=== PATIENT | male | born 1940 | race Caucasian/White ===

== ENCOUNTER → 2023-10-23 13:16 | Outpatient (REF) | payer OTHER, SELFPAY | LOC: RAD 13:16 | PROVIDERS: ATTENDING PHYSICIAN Internal Medicine | DX: I77.811 Abdominal aortic ectasia (principal) | CPT/HCPCS: 76770 ==

== ENCOUNTER 2024-05-03 11:21 | Emergency (ER) | payer OTHER, SELFPAY ==
--- NOTE | 2024-05-03 11:36 | ED.GENMED ---
ED Provider Triage
<Pavel Jackson PA-C - Last Filed: 05/03/24 11:41>
-
Patient seen by provider in Triage?: Seen in Triage
Attestation: A medical screening examination has been initiated by a qualified medical provider. Based on the assessment performed at this time, it has been determined that an emergent medical condition may exist and the patient has been informed
that further medical evaluation and possible additional diagnostic testing may be needed.
HPI:
GENERAL: Alert , in no apparent distress
EYE: No visual abnormalities.
NECK: Trachea midline
ENT: No visible abnormalities.
LUNGS: No acute respiratory distress
NEUROLOGICAL: Alert and oriented
SKIN: Skin intact. No visible changes.
MUSCULOSKELETAL: Moving extremities normally
PSYCH: Normal and appropriate interaction.
This is a medical evaluation conducted in person to initiate diagnostic evaluation and provide initial therapeutics. Please see further documentation by the treating clinician.
History of Present Illness
<Pavel Jackson PA-C - Last Filed: 05/03/24 11:41>
General
Chief Complaint: Musculo-Skeletal Complaint
Time Seen by Provider: 05/03/24 13:46
<Driss Bowre MD - Last Filed: 05/03/24 15:51>
General
Source: patient
Exam Limitations: none
History of Present Illness
History of Present Illness:
Patient with weeks of right mid scapular pain. With shooting pain down the back of the right arm. Patient points to the back of the arm only. No chest pain or shortness of breath. No pleuritic pain. No fever or chills. Seen by pain management
the other day with no improvement. However he is able to sleep well at night without issues.
Past History
<Pavel Jackson PA-C - Last Filed: 05/03/24 11:41>
Past History
ED Past Medical History: Hypercholesterolemia; Negative Asthma, HTN or NIDDM
ED Past Surgical History: None
Social History
Tobacco: Former smoker
Alcohol: Occasional
Personal:
Living: with family
Phy Exam
<Driss Bower MD - Last Filed: 05/03/24 15:51>
Physical Exam
Physical Exam:
GENERAL: Alert and oriented in no apparent distress
EYE: Orbits normal.
NECK: Supple
CARDIAC: Regular rate and rhythm without any obvious murmurs. Patient points to the right mid to upper parathoracic area as the location of the pain however no point tenderness no swelling no warmth no erythema. Good distal pulses of the right arm.
LUNGS: Clear breath sounds,normal
ABDOMEN: Soft, without focal tenderness or distention
NEUROLOGICAL: Alert and oriented , grossly non-focal
SKIN: Warm and dry, no rash or lesion, no discoloration, skin intact.
MUSCULOSKELETAL: No edema,no deformity.Good color
PSYCH: Normal and appropriate interaction.
Course
<Pavel Jackson PA-C - Last Filed: 05/03/24 11:41>
Orders/Labs/Results
Orders:
Orders
05/03/24 11:41
CR Cervical Spine 4 Or 5 Vw Urgent
Comment:
Reason For Exam: pain
05/03/24 14:14
Ketorolac [Toradol] 30 mg IM NOW STA
CXR2 [CR Chest - 2 Views ] Urgent
Comment:
Reason For Exam: Nontraumatic right upper back pain
Vital Signs
Initial and Last Documented VS:
Initial Vital Signs
Pulse Resp BP Pulse Ox
63 16 173/98 98
05/03/24 11:37 05/03/24 11:37 05/03/24 11:37 05/03/24 11:37
Last Documented Vital Signs
Pulse Resp BP Pulse Ox
63 16 173/98 98
05/03/24 11:37 05/03/24 11:37 05/03/24 11:37 05/03/24 11:37
<Driss Bower MD - Last Filed: 05/03/24 15:51>
Orders/Labs/Results
Orders:
Orders
05/03/24 11:41
CR Cervical Spine 4 Or 5 Vw Urgent
Comment:
Reason For Exam: pain
05/03/24 14:14
Ketorolac [Toradol] 30 mg IM NOW STA
CXR2 [CR Chest - 2 Views ] Urgent
Comment:
Reason For Exam: Nontraumatic right upper back pain
Vital Signs
Initial and Last Documented VS:
Initial Vital Signs
Pulse Resp BP Pulse Ox
63 16 173/98 98
05/03/24 11:37 05/03/24 11:37 05/03/24 11:37 05/03/24 11:37
Last Documented Vital Signs
Pulse Resp BP Pulse Ox
63 16 173/98 98
05/03/24 11:37 05/03/24 11:37 05/03/24 11:37 05/03/24 11:37
<Driss Bower MD - Last Filed: 05/03/24 15:51>
MDM/Problems Addressed
Differential Diagnosis Includes:
Patient has had continual symptoms for weeks. Continuous, nonexertional, nonpleuritic. he is in 0 distress. The pain shoots down the back of the right arm only. I do not feel this is cardiac. This is all consistent with a radiculopathy like
pain. 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 Will increase his steroid dose pain management and orthopedic follow-up.
<Driss Bower MD - Last Filed: 05/03/24 15:51>
*Radiology
Radiology exam reviewed: preliminary read by ED provider (Degenerative changes.) and radiology read reviewed (Degenerative changes. Atelectasis left base)
*Pulse Oximetry
Patient hypoxic: no
*Critical Care Note
Total Time (30-74mins, 75-104mins- exclusive of procedures): Not Applicable
Data Reviewed
Review of Other/Old Records Reveals: Radiology Studies
ED Attending Note
<Pavel Jackson PA-C - Last Filed: 05/03/24 11:41>
-
Portions of this chart may have been created with voice recognition software.� Occasional wrong word or��sound alike� substitutions may have occurred due to the inherent limitations of voice recognition software.
Discharge Plan
Departure
Patient Disposition: Home (Routine Discharge)
Date of Disposition: 05/03/24
Time of Disposition: 15:47
Patient with high blood pressure during this ER visit?: Yes
Discharge Problem:
Upper back pain/radiculopathy
Instructions: Radiculopathy of the neck and back (including sciatica), Upper Back Pain ED, BLOOD PRESSURE
Prescriptions:
New
prednisone 10 mg tablet
10 mg PO DAILY Qty: 20 0RF
Rx Instructions:
4 tablets day 1. Then 1 less tablet every other day until gone
hydrocodone-acetaminophen 5-300 mg tablet
1 tab PO Q6H PRN (Reason: Pain) Qty: 14 0RF
Referrals:
Jeet Cody MD [Family Provider] - Follow up in 2-3 days
Dat Perez MD [Active] - Next open appointment
Activity Restrictions/Additional Instructions:
Take the higher dose of prednisone
You can try the Vicodin instead of the Ultram. Either of these medicines will make you groggy however.
These prescriptions were sent to your pharmacy
You may want to start with Advil Motrin or Aleve.
Recommend follow-up with orthopedics.
Return with increasing pain chest pain shortness of breath weakness in the arm or any other concerning symptoms
Interventions
Interventions:
*Risk Screen - Suicide Last Done: 05/03/24 11:41
*General Assessment Last Done: 05/03/24 11:37
*Neglect/Abuse Screening Last Done: 05/03/24 11:41
Discharge Date and Time
Print Language: SALVADOREAN
[2024-05-03 11:37] VITALS: BP 173/98
[2024-05-03] MEDS: TORADOL 30 MG IM (15:31)
[2024-05-03] MEDS: DELTASONE 40 MG PO (15:55)
== END 2024-05-03 15:55 | disposition home or self-care (01) ==
LOC: EMR 11:21
PROVIDERS: EMERGENCY PHYSICIAN Emergency Medicine; FAMILY PHYSICIAN Internal Medicine
DX: M54.14 Radiculopathy, thoracic region (principal); M54.6 Pain in thoracic spine; M79.601 Pain in right arm; R03.0 Elevated blood-pressure reading, without diagnosis of hypertension; E78.00 Pure hypercholesterolemia, unspecified
CPT/HCPCS: 99284; 96372; 71046; 72050

== ENCOUNTER → 2024-07-30 08:36 | Outpatient (REF) | payer OTHER, SELFPAY | LOC: RAD 08:36 | PROVIDERS: ATTENDING PHYSICIAN Internal Medicine | DX: I71.40 Abdominal aortic aneurysm, without rupture, unspecified (principal) | CPT/HCPCS: 76770 ==

== ENCOUNTER → 2025-02-02 16:19 | Outpatient (REF) | payer OTHER, SELFPAY ==
[2025-02-02 17:19] LABS: Hematocrit 45.2 % (39.0-52.0); Hemoglobin 15.4 g/dL (13.0-18.0); Mean Corp Hgb Conc. 34.1 g/dL (33.0-37.0); Mean Corpuscular Volume 99.8 fL (80.0-94.0); Nucleated Red Blood Cells % 0 % (-); Platelet Count 203 10^3/uL (130-400); Red Cell Dist. Width 13.0 % (11.5-14.5)
[2025-02-02 17:42] LABS: ALT (SGPT) 27 U/L (0-50); AST (SGOT) 30 U/L (17-59); Albumin 5.0 g/dl (3.5-5.0); Alkaline Phosphatase 58 U/L (38-126); Blood Urea Nitrogen 17 mg/dl (9-20); Calcium 9.9 mg/dl (8.4-10.2); Carbon Dioxide 31 mmol/L (22-30); Chloride 102 mmol/L (98-107); Glucose 119 mg/dl (70-99); Potassium 4.9 mmol/L (3.5-5.1); Sodium 139 mmol/L (135-145); Total Protein 8.1 g/dl (6.3-8.2); eGFR > 60.00
== END ==
LOC: REG 16:19
PROVIDERS: ATTENDING PHYSICIAN Surgery Plastic and Reconstructive Surgery; FAMILY PHYSICIAN Internal Medicine
DX: Z01.812 Encounter for preprocedural laboratory examination (principal); Z01.810 Encounter for preprocedural cardiovascular examination
CPT/HCPCS: 36415; 80053; 85025; 93005

== ENCOUNTER 2025-02-10 06:21 | Day surgery (SDC) | payer OTHER, SELFPAY ==
[2025-02-10] VITALS (8 sets, daily range): BP systolic 132–179; BP diastolic 72–88; BMI 29.0
[2025-02-10] MEDS: TYLENOL 1000 MG PO (09:41)
[2025-02-10] MEDS: NORMOSOL-R/PLASMALYTE-A 1000 IV (09:56)
--- NOTE | 2025-02-10 16:43 | W.IMMPOSTOP ---
Surgical Immed Post Op Note
-
Primary Surgeon: ALIVIA Hameed MD
Assisting Surgeon:
Pre-op Diagnosis: Melanoma in situ, Mohs defect of the nose
Post-op Diagnosis: Same
Procedure Performed: Pedicled nasolabial fold flap reconstruction of left nasal tip, complex intranasal wound closure
Anesthesia Type: General
Specimen / Cultures: None
Estimated Blood Loss: 10 cc
Complications: None
Operative Findings: As expected
--- NOTE | 2025-02-10 16:43 | OR.RPT ---
Operative Report
Operative Report
Date of surgery: 02/10/2025
Surgeon: ALIVIA Hameed MD
Preoperative diagnosis:
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
2. Nasal soft tissue defect after Mohs surgery
Postoperative diagnosis: Same
Procedure:
1. Pedicled nasolabial fold flap reconstruction of the left nasal defect
2. Complex wound closure, intranasal, left 1.5 cm
3. Wound bed prep, 2.2 x 2.2 cm, left nasal tip
Complications: None
Anesthesia: General
EBL: 10 cc
Indications for procedure: Patient is an 84-year-old male who is referred to me following Mohs resection of a melanoma in situ of the nasal tip. He presented to me following this procedure without prior consultation. He was referred by Dr. Gordon,
Mohs surgery. Upon exam, he had approximately a 2 x 2 cm full-thickness defect of the nasal tip. Pathology from the Mohs resection indicated clear margins. He did have notching at the nasal ala due to full-thickness soft tissue loss. A
conversation was had about potential reconstructive options. This included local flaps as well as grafts. The risk benefits were both were reviewed at length. We discussed both forehead flap reconstruction of the entire nasal tip as a subunit
principal as well as isolated left nasal tip reconstruction using a nasolabial fold flap. We discussed the donor sites for both procedures including scar in the left cheek or forehead. Grafts were discussed however are inferior to local flap
reconstruction of Mohs defects of the face. The patient elected for a two-stage left nasolabial fold flap reconstruction of the left nasal tip. In the event of failure or an unacceptable cosmetic result, full nasal reconstruction and forehead flap
would be required. Risks include scarring, flap failure, need for repeat procedure, recurrence of the original disease process, poor cosmetic outcome, amongst infection bleeding. A secondary procedure would be performed in approximately 3 to 4
weeks including division and inset of the flap. He understood these risks desire to proceed
Procedure in detail: Patient was identified preoperatively and the surgical site was confirmed to be the nasal tip and left cheek. All questions were answered and consents were confirmed. Patient was taken back to the operating placed supine on
table. Anesthesia was induced the patient was prepped and draped in usual sterile fashion using Betadine solution. Timeout for patient safety was performed was confirmed the preoperative antibiotics been administered bilateral SCDs were in place.
1% lidocaine with epinephrine was injected into the defect of the nose and surrounding tissues as well as lateral cheek. Procedure began with the wound wound bed preparation of the nasal defect which was measured to be approximately 2.2 x 2.2 cm.
This was performed with a 15 blade removing fibrinous debris and rolled wound edges due to interval healing. After removing the fibrinous debris, it was evident that there was alar notching with a full-thickness defect including the nasal mucosa.
As such a complex closure of the nasal mucosa had to be performed as well as the alar rim prior to flap reconstruction. This was done over an area of 1.5 cm. A series of 5-0 chromic sutures were placed in interrupted fashion after freeing the
nasal mucosa from its underlying soft tissue. Once this complex closure was performed attention was drawn back to correcting the superficial nasal defect. The defect was utilized to create a template which was then transposed onto the left
nasolabial fold cheek skin. The pedicle length was measured to ensure tension-free closure. A superiorly based skin and subcutaneous flap was then marked out along the nasolabial fold measuring a width of approximately 2 cm. This was incised with
a 15 blade and dissected free with monopolar cautery. Care was taken to remain superficial to the musculature of facial animation. Dissection continued up to the level of the nasal base. The pedicle was then rotated to place and ensure
tension-free closure could be performed with adequate wound coverage. The donor site wound was then closed after ensuring meticulous hemostasis. This was done in layers with a series of 5-0 Vicryl as well as 5-0 Prolene sutures. Small area at the
pedicle base was left open to prevent kinking. The tip of the flap was then thinned to match the nasal skin. It was then sutured into place using a series of 5-0 Prolene's. The exposed subcutaneous tissue was then wrapped with Surgicel and
sutured in place. The flap showed evidence of adequate perfusion and venous outflow. Patient tolerated the procedure well and was performed out complication. All counts were correct at the end the case. Patient was extubated taken the PACU for
further care.
== END 2025-02-10 14:53 | disposition home or self-care (01) ==
LOC: SDS 06:21
PROVIDERS: ATTENDING PHYSICIAN Surgery Plastic and Reconstructive Surgery
DX: D03.39 Melanoma in situ of other parts of face (principal); M95.0 Acquired deformity of nose
CPT/HCPCS: 14040; 14060; 13151

== ENCOUNTER 2025-03-04 06:26 | Day surgery (SDC) | payer OTHER, SELFPAY ==
[2025-03-04 11:33] VITALS: BMI 29.3
[2025-03-04 11:34] VITALS: BP 129/75
[2025-03-04] MEDS: NORMOSOL-R/PLASMALYTE-A 1000 IV (11:49)
--- NOTE | 2025-03-04 12:00 | W.SUR.PREOP ---
Pre-Operative Surgical Note
-
I have examined this patient prior to the performance of the scheduled procedure.
The patient's condition is unchanged from the time of the current History and
Physical and the patient is able to undergo the scheduled procedure.
--- NOTE | 2025-03-04 13:36 | OR.RPT ---
Operative Report
Operative Report
Date of surgery: 03/04/25
Surgeon: ALIVIA Hameed MD
Preoperative diagnosis:
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
2. Status post Mohs surgery with resultant defect
3. Status post for stage nasal flap reconstruction
Postoperative diagnosis: Same
Procedure:
1. Division and inset nasolabial fold flap
2. Adjacent tissue transfer 2 x 1 cm, left cheek
Anesthesia: MAC
Specimens: None
EBL: 3 cc
Indication for procedure: Patient is an 84-year-old male with a diagnosis of melanoma in situ of the nose cleared by Mohs surgery. He was referred to me following clear margins with a nasal defect. Reconstructive options were reviewed at length
and he elected to proceed with a two-stage nasolabial fold flap. Stage I was performed without complication and healed for 3 to 4 weeks. He now presents for division and inset and donor site closure. Resultant scars, risks of the nasal flap
reconstruction, risk of infection bleeding hematoma reviewed at length. He understands that it may require revisionary procedures and that some asymmetry or nasal irregularities may persist. He consented accordingly.
Procedure in detail: Patient was identified preoperatively and the surgical site was confirmed to be the left cheek and nose. Consents were confirmed and all questions were answered. Patient was taken back to the operating placed upon table.
Monitored anesthesia care was induced patient was prepped with Betadine solution. He was draped in the usual sterile fashion. Timeout for patient safety was performed and a 50-50 mixture of 1% lidocaine with epinephrine and half percent Marcaine
was injected into the nose and cheek donor site. After reducing the FiO2, electrocautery was used to divide the flap. Meticulous hemostasis was ensured and then a 15 blade was used to contour the nasal component of the flap and inset it. It was
debulked effectively in D epilated. It was then sutured in place with a series of 5-0 Prolene sutures. On the cheek, Z-plasty was created at the donor site over an area of 2 x 1 cm to break up the scar at the nasofacial junction. This was done
using a triangular segment of the nasolabial fold flap. This was inset along the nasolabial fold and the tissue was then closed around it. Wound was closed with a series of 5-0 Vicryl followed by 5-0 Prolene. Patient tolerated the procedure well
was performed out complication. All counts were correct at the end the case. He was taken the PACU further care.
--- NOTE | 2025-03-04 13:37 | W.IMMPOSTOP ---
Surgical Immed Post Op Note
-
Primary Surgeon: ALIVIA Hameed MD
Assisting Surgeon:
Pre-op Diagnosis: Melanoma in situ, Mohs defect of the nose
Post-op Diagnosis: Same
Procedure Performed: Division and inset of nasolabial fold flap, adjacent tissue transfer
Anesthesia Type: MAC
Specimen / Cultures: None
Estimated Blood Loss: 3 cc
Complications: None
Operative Findings: As expected
[2025-03-04 15:00] VITALS: BP 111/65
[2025-03-04 15:15] VITALS: BP 126/66
[2025-03-04 15:30] VITALS: BP 130/80
[2025-03-04 15:45] VITALS: BP 143/66
== END 2025-03-04 15:54 | disposition home or self-care (01) ==
LOC: SDS 06:26
PROVIDERS: ATTENDING PHYSICIAN Surgery Plastic and Reconstructive Surgery
DX: M95.0 Acquired deformity of nose (principal); D03.39 Melanoma in situ of other parts of face; Z98.890 Other specified postprocedural states
CPT/HCPCS: 15630; 13152